=== PATIENT | female | born 1985 | race Caucasian/White ===

== ENCOUNTER 2020-11-23 10:18 | Emergency (ER) | payer OTHER ==
[~2020-11-23] VITALS: Ht 149.9 cm; Wt 74.8 kg
[~2020-11-23 10:18] MED LIST: ANTIBIOTIC; BACTRIM DS TAB1 EACH PO; BACTROBAN CREAM30 G1 TOP; CIPROFLOXACIN500 M1 PO; DIFLUCAN150 MG PO; EFFEXOR XR75 MG PO; IBUPROFEN 600600 M1 PO; KEFLEX500 MG PO; MECLIZINE HCL12.5 MG PO; MEDROLDOSEPACK PO; MOVANA300 MG PO; NOHOMEMEDICATIONS; NORCO 5-325 TA1 EAC1 PO; NORCO 5-325 TA1 EACH PO; ZOFRAN 4 MG ORAL4 MG PO; ZPAK PO
[2020-11-23] MEDS ORDERED: METFORMIN HCL500 M3 PO (10:29)
[2020-11-23 11:02] LABS: URINE BILIRUBIN NEGATIVE (Negative); URINE BLOOD 3+ (Negative); URINE CLARITY SL CLOUDY; URINE COLOR DARK YELLOW; URINE GLUCOSE-RANDOM NEGATIVE (Negative); URINE KETONES NEGATIVE (Negative); URINE LEUKOCYTES-REFLEX NEGATIVE (Negative); URINE NITRITE-REFLEX NEGATIVE (Negative); URINE PROTEIN NEGATIVE (Negative); URINE SPECIFIC GRAVITY 1.025 (1.005-1.030); URINE UROBILINOGEN 0.2 E.U./dl (0.2-1.0)
[2020-11-23 11:24] LABS: CASTS None Seen /LPF (None Seen); SQUAMOUS 0-3 Few /LPF (0-3)
[2020-11-23 11:25] LABS: BACTERIA-REFLEX 1-9 Few /HPF (None Seen); CRYSTALS None Seen /LPF (None Seen); URINE RBC >20 Many /HPF (0-2); URINE WBC-REFLEX None Seen /HPF (0-5)
[2020-11-23 11:27] LABS: ABSOLUTE BASOPHILS 0.1 thou/uL (0.0-0.2); ABSOLUTE EOSINOPHILS 0.1 thou/uL (0.0-0.7); ABSOLUTE LYMPHOCYTES 2.1 thou/uL (0.8-5.3); ABSOLUTE MONOCYTES 0.4 thou/uL (0.0-1.2); ABSOLUTE NEUTROPHILS 4.9 thou/uL (1.6-8.1); BASOPHILS 1.3 %; EOSINOPHILS 1.9 %; HEMATOCRIT 38.2 % (37.0-47.0); HEMOGLOBIN 12.7 gm/dL (12.0-15.0); LYMPHOCYTES 27.4 %; MCH 28.7 pg (26.0-34.0); MCHC 33.2 g/dL (28.0-37.0); MCV 86.4 fL (80.0-100.0); MONOCYTES 5.5 %; NUCLEATED RBCS 0 /100WBC; PLATELET COUNT* 220 thou/uL (150-400); POLYS 63.9 %; RBC 4.42 mil/uL (4.20-5.00); RDW-CV 14.5 % (10.5-14.5); WBC 7.7 thou/uL (4.0-11.0)
[2020-11-23 11:34] LABS: CALCIUM 8.7 mg/dL (8.5-10.1); CREATININE 0.7 mg/dL (0.6-1.3); POTASSIUM 4.7 mmol/L (3.5-5.1)
[2020-11-23 11:39] LABS: ALBUMIN 2.9 g/dL (3.4-5.0); TOTAL BILIRUBIN 0.2 mg/dL (<0.1-1.0); TOTAL PROTEIN 6.4 g/dL (6.4-8.2)
[2020-11-23] MEDS ORDERED: LIDODERM1 EACH TOP (13:02)
[2020-11-23] MEDS ORDERED: FLEXERIL PO (13:02)
[2020-11-23] MEDS ORDERED: IBUPROFEN 800800 M1 PO (13:02)
[2020-11-23 13:10] VITALS: BP 122/68
== END 2020-11-23 13:11 | disposition home or self-care (01) ==
LOC: M.ERS 10:18
PROVIDERS: Nurse Practitioner Family
DX: S20.212A Contusion of left front wall of thorax, initial encounter (principal); S70.02XA Contusion of left hip, initial encounter; S20.222A Contusion of left back wall of thorax, initial encounter; R31.9 Hematuria, unspecified; Z87.442 Personal history of urinary calculi; Z86.14 Personal history of Methicillin resistant Staphylococcus aureus infection; Z79.899 Other long term (current) drug therapy; Z88.8 Allergy status to other drugs, medicaments and biological substances; W17.89XA Other fall from one level to another, initial encounter; Y93.89 Activity, other specified; Y92.89 Other specified places as the place of occurrence of the external cause; Y99.8 Other external cause status

== ENCOUNTER 2021-01-02 01:47 | Emergency (ER) | payer OTHER ==
[~2021-01-02] VITALS: Ht 149.9 cm; Wt 77.1 kg
[~2021-01-02 01:47] MED LIST changes: +FLEXERIL PO; +IBUPROFEN 800800 M1 PO; +LIDODERM1 EACH TOP; +METFORMIN HCL500 M3 PO
[2021-01-02] MEDS ORDERED: ANXIETY MED (01:52)
[2021-01-02] MEDS ORDERED: BIRTH CONTROL (01:52)
[2021-01-02 02:11] LABS: ABSOLUTE BASOPHILS 0.1 thou/uL (0.0-0.2); ABSOLUTE LYMPHOCYTES 1.7 thou/uL (0.8-5.3); ABSOLUTE MONOCYTES 0.5 thou/uL (0.0-1.2); ABSOLUTE NEUTROPHILS 11.6 thou/uL (1.6-8.1); EOSINOPHILS 0.1 %; HEMATOCRIT 40.1 % (37.0-47.0); HEMOGLOBIN 13.1 gm/dL (12.0-15.0); LYMPHOCYTES 11.9 %; MCH 28.5 pg (26.0-34.0); MCHC 32.8 g/dL (28.0-37.0); MONOCYTES 3.5 %; MPV 7.8 fl. (7.2-11.1); NUCLEATED RBCS 0 /100WBC; PLATELET COUNT* 255 thou/uL (150-400); POLYS 83.5 %; RBC 4.61 mil/uL (4.20-5.00); RDW-CV 13.9 % (10.5-14.5)
[2021-01-02 02:16] LABS: CALCIUM 8.8 mg/dL (8.5-10.1); POTASSIUM 4.4 mmol/L (3.5-5.1)
[2021-01-02 02:29] LABS: URINE BILIRUBIN NEGATIVE (Negative); URINE BLOOD 1+ (Negative); URINE CLARITY CLEAR; URINE COLOR YELLOW; URINE GLUCOSE-RANDOM NEGATIVE (Negative); URINE KETONES 1+ (Negative); URINE LEUKOCYTES-REFLEX NEGATIVE (Negative); URINE NITRITE-REFLEX NEGATIVE (Negative); URINE PROTEIN NEGATIVE (Negative); URINE SPECIFIC GRAVITY 1.025 (1.005-1.030); URINE UROBILINOGEN 0.2 E.U./dl (0.2-1.0)
[2021-01-02 02:39] LABS: SQUAMOUS 0-3 Few /LPF (0-3); TRANSITIONAL EPITHEL CELL 0-3 Few /LPF (None Seen)
[2021-01-02 02:40] LABS: CASTS None Seen /LPF (None Seen); CRYSTALS None Seen /LPF (None Seen); MUCUS 0-3 Light strn/LPF (None Seen); URINE WBC-REFLEX 6-15 Few /HPF (0-5)
[2021-01-02] MEDS ORDERED: HYDROCODON-ACE1 EAC8 PO (03:59)
[2021-01-02] MEDS ORDERED: ZOFRAN ODT4 MG PO (03:59)
[2021-01-02] MEDS ORDERED: TORADOL 10 MG T10 MG PO (03:59)
[2021-01-02] MEDS ORDERED: MACROBID 100 M100 M1 PO (03:59)
[2021-01-02 04:10] VITALS: BP 105/58
== END 2021-01-02 04:11 | disposition home or self-care (01) ==
LOC: M.ERS 01:47
PROVIDERS: Emergency Medicine
DX: N13.2 Hydronephrosis with renal and ureteral calculous obstruction (principal); Z87.42 Personal history of other diseases of the female genital tract; Z86.14 Personal history of Methicillin resistant Staphylococcus aureus infection; Z79.899 Other long term (current) drug therapy; Z88.8 Allergy status to other drugs, medicaments and biological substances

== ENCOUNTER 2021-03-19 16:49 | Emergency (ER) | payer OTHER ==
[~2021-03-19] VITALS: Ht 149.9 cm; Wt 77.1 kg
[~2021-03-19 16:49] MED LIST changes: +ANXIETY MED; +BIRTH CONTROL; +HYDROCODON-ACE1 EAC8 PO; +MACROBID 100 M100 M1 PO; +TORADOL 10 MG T10 MG PO; +ZOFRAN ODT4 MG PO
[2021-03-19 20:45] VITALS: BP 124/93
[2021-03-19] MEDS ORDERED: APAP W/CODEINE1 TA2 PO (20:55)
== END 2021-03-19 20:45 | disposition home or self-care (01) ==
LOC: M.ERS 16:49
DX: S33.8XXA Sprain of other parts of lumbar spine and pelvis, initial encounter (principal); M79.672 Pain in left foot; M25.512 Pain in left shoulder; Z79.891 Long term (current) use of opiate analgesic; Z79.84 Long term (current) use of oral hypoglycemic drugs; Z79.899 Other long term (current) drug therapy; Z88.8 Allergy status to other drugs, medicaments and biological substances; Z88.6 Allergy status to analgesic agent; W17.89XA Other fall from one level to another, initial encounter; Y93.89 Activity, other specified; Y92.89 Other specified places as the place of occurrence of the external cause; Y99.8 Other external cause status